=== PATIENT | male | born 1985 ===

== ENCOUNTER 2018-11-25 09:03 | Day surgery (SDC) | payer OTHER | END 2018-11-25 17:30 | disposition home or self-care (01) | LOC: AMB-ENDOS 09:03 | DX: K58.8 Other irritable bowel syndrome (principal); Z12.11 Encounter for screening for malignant neoplasm of colon ==

== ENCOUNTER 2024-01-11 05:50 | Day surgery (SDC) | payer OTHER ==
[~2024-01-11 05:50] MED LIST: BYSTOLIC10 MG; ENALAPRIL MALEA10 MG; TAMS0.4C; [UNRECOGNIZED DRUG - OTHER]
[2024-01-11] MEDS ORDERED: CELECOXIB200 MG PO (10:43)
[2024-01-11] MEDS ORDERED: PERCOCET 5-3251 EACH PO (10:43)
[2024-01-11] MEDS ORDERED: NEURONTIN300 MG PO (10:43)
[2024-01-11] MEDS ORDERED: BUPIVACAINE HCL 30 ML VIAL IJ ONE (10:45)
[2024-01-11] MEDS ORDERED: POVIDONE-IODINE 118 ML BOTT TOP ONE (10:45)
[2024-01-11] MEDS ORDERED: DIBUCAINE 30 GM TUBE RECTAL ONE (10:45)
[2024-01-11] MEDS ORDERED: METRONIDAZOLE/SODIUM CHLORIDE 500 MG/100 ML PIGGYBACK IV ONE (10:45)
[2024-01-11] MEDS ORDERED: HEMOSTATIC MATRIX 1 KIT KIT TOP ONE (10:45)
[2024-01-11] MEDS ORDERED: CEFTRIAXONE SODIUM 2,000 MG VIAL IV ONE (10:45)
[2024-01-11] MEDS ORDERED: LIDOCAINE HCL 1%/EPINEPHRINE 20ML VIAL IJ ONE (10:45)
[2024-01-11] MEDS ORDERED: ONDANSETRON HCL 2 MG/ML VIAL IV ONE (11:50)
== END 2024-01-11 16:20 | disposition home or self-care (01) ==
LOC: CIR.AMB 05:50
PROVIDERS: ATTEND Surgery
DX: K60.1 Chronic anal fissure (principal); K60.3 Anal fistula; K59.09 Other constipation; K62.5 Hemorrhage of anus and rectum; I10 Essential (primary) hypertension; E78.00 Pure hypercholesterolemia, unspecified; K76.0 Fatty (change of) liver, not elsewhere classified